=== PATIENT | female | born 2005 | race Caucasian/White ===

== ENCOUNTER 2023-06-01 07:05 | Emergency (ER) | payer OTHER, SELFPAY ==
[2023-06-01] VITALS (7 sets, daily range): BP systolic 130–135; BP diastolic 87–100; PULSE 98–115; RESP 20; TEMP 38.2; O2SAT 95–98; BMI 22.3
--- NOTE | 2023-06-01 07:30 | ED_ITS ---
HPI - General Adult General Chief complaint: Difficulty Swallowing <Ruddy Pedraza MD - Last Filed: 06/03/23 07:19> Stated complaint: COVID+, trouble breathing <Ruddy Pedraza MD - Last Filed: 06/03/23 07:19> Time Seen by Provider: 06/01/23 07:23 <Ruddy Pedraza MD - Last Filed: 06/03/23 07:19> History of Present Illness HPI narrative: Patient is a 17-year-old college student at [employer] who comes in today with 2 day history of pharyngitis general malaise nonproductive cough and fatigue. She was seen in urgent care yesterday and tested positive for both influenza and COVID-19. Her rapid strep was negative. Today her main complaint is severe pharyngitis. She does have temperature of 100.8?. She has having hard time swallowing and is feeling dehydrated. She has had no nausea no vomiting no abdominal pain. She was started on Tamiflu and Augmentin yesterday but was unable to pick it up at her pharmacy. Patient states she is otherwise healthy. <Ruddy Pedraza MD - Last Filed: 06/03/23 07:19> Related Data Home medications: Home Medications Medication Instructions Recorded Confirmed epinephrine 0.3 mg/0.3 mL IM 05/31/23 05/31/23 injection, auto-injector fluticasone propionate 50 1 spray intranasal QDAY 05/31/23 05/31/23 mcg/actuation nasal spray,suspension (Flonase Allergy Relief) Previous Rx's Medication Instructions Recorded amoxicillin 875 mg-potassium 1 tab PO BID 10 days #20 tabs 05/31/23 clavulanate 125 mg tablet oseltamivir 75 mg capsule 75 mg PO BID 5 days #10 caps 05/31/23 <Ruddy Pedraza MD - Last Filed: 06/03/23 07:19> Allergies/adverse reactions: Allergies Allergy/AdvReac Type Severity Reaction Status Date / Time peanut Allergy Anaphylaxis Verified 06/01/23 08:04 <Ruddy Pedraza MD - Last Filed: 06/03/23 07:19> Review of Systems Status of ROS: Reports: 10 or more systems reviewed and unremarkable except as noted in History and below <Ruddy Pedraza MD - Last Filed: 06/03/23 07:19> [facility] Social History: Social History Smoking Status: Never smoker Do you use any of these nicotine containing products: None How often do you have a drink containing alcohol: never AUDIT-C Alcohol total score: 0 Non-prescribed substance use: denies use <Ruddy Pedraza MD - Last Filed: 06/03/23 07:19> Exam Narrative: Exam Narrative: EXAM GENERAL: Patient appears uncomfortable EYES: No scleral icterus. ENT: Tympanic membranes are normal with significant tonsillar enlargement with exudate noted THYROID: no thyroid nodules or thyromegaly. LYMPH: No supraclavicular or cervical lymphadenopathy. SKIN: Visible skin seen during exam normal or with benign process only. EXT: No dependent lower extremity pedal edema. HEART: Regular rate and rhythm with no murmurs, rubs, or gallops. LUNGS: Clear to auscultation bilaterally with no crackles or wheezes. ABD: Soft, non tender, non distended. PSYCH: Good eye contact, speech is not pressured. <Ruddy Pedraza MD - Last Filed: 06/03/23 07:19> Const: Vital Signs, click to edit/add: Vital Signs - 24 hr 06/01/23 07:17 06/01/23 07:30 06/01/23 09:48 Temperature 100.8 F H Pulse Rate 112 H Pulse Rate [Pulse Oximeter] 98 115 H Respiratory Rate 20 Blood Pressure [Ri ght Upper Arm] 135/100 H 130/87 Pulse Oximetry 98 97 96 Oxygen Delivery Me thod Room Air Room Air 06/01/23 10:00 06/01/23 10:15 06/01/23 10:30 Temperature Pulse Rate 109 H 109 H 106 H Pulse Rate [Pulse Oximeter] Respiratory Rate Blood Pressure [Ri ght Upper Arm] Pulse Oximetry 96 97 95 Oxygen Delivery Me thod 06/01/23 10:45 Temperature Pulse Rate 104 H Pulse Rate [Pulse Oximeter] Respiratory Rate Blood Pressure [Ri ght Upper Arm] Pulse Oximetry 95 Oxygen Delivery Me thod <Ruddy Pedraza MD - Last Filed: 12/18/23 07:19> Vital Signs, click to edit/add: Vital Signs - 24 hr 06/01/23 07:17 06/01/23 07:30 06/01/23 09:48 Temperature 100.8 F H Pulse Rate 112 H Pulse Rate [Pulse Oximeter] 98 115 H Respiratory Rate 20 Blood Pressure [Ri ght Upper Arm] 135/100 H 130/87 Pulse Oximetry 98 97 96 Oxygen Delivery Me thod Room Air Room Air 06/01/23 10:00 06/01/23 10:15 06/01/23 10:30 Temperature Pulse Rate 109 H 109 H 106 H Pulse Rate [Pulse Oximeter] Respiratory Rate Blood Pressure [Ri ght Upper Arm] Pulse Oximetry 96 97 95 Oxygen Delivery Me thod 06/01/23 10:45 Temperature Pulse Rate 104 H Pulse Rate [Pulse Oximeter] Respiratory Rate Blood Pressure [Ri ght Upper Arm] Pulse Oximetry 95 Oxygen Delivery Me thod <Michael Rodriguez MD - Last Filed: 06/01/23 19:53> Course Course ED Course: Patient seen and examined. IV placed. Normal saline started. Toradol 30 mg given IV. Rapid strep repeated. CBC basic metabolic panel CT neck soft tissue ordered. <Ruddy Pedraza MD - Last Filed: 06/03/23 07:19> Reevaluation(s) Reevaluation #1: Patient signed over to Dr. Rodriguez at shift change-8:00 a.m.. 17-year-old generally healthy seen with student. Has been sick for 2 days. Seen yesterday with a 1 day history of sore throat, fever chills, cough. In urgent care tested negative for strep. Nasal swab was positive for both coronavirus and influenza. Urgent Care notes indicate that she had exudate of pharyngitis and tonsil asymmetry. Although strep was negative she was given prescription for Augmentin. Also prescription for Tamiflu to treat influenza. She has not been able to fill the prescriptions for Tamiflu or Augmentin. Return to the ER this morning with ongoing sore throat, difficulty taking fluids. Dr. Pedraza saw her. He ordered Toradol, IV fluids, labs, and neck CT to evaluate for possible peritonsillar or retropharyngeal abscess. Labs show: WBC 12.7, hemoglobin 14.6, platelet 206 Differential 44.9% lymphocytes, 44.7 monocyte Sodium 137, potassium 4.0, chloride 102, bicarb 23, anion gap 12, BUN 10, creatinine 0.9, glucose 105 <Michael Rodriguez MD - Last Filed: 06/01/23 19:53> Reevaluation #2: CT neck results back IMPRESSION: 1. [place] tonsillitis, without discrete rim enhancing fluid collection to suggest abscess. Mild infiltration of the parapharyngeal fat. 2. Presumed reactive cervical chain lymphadenopathy. 3. Mild paranasal sinus mucosal disease. <Michael Rodriguez MD - Last Filed: 06/01/23 19:53> Reevaluation #3: Recheck-I re-evaluated the patient. She is sitting up in her bed. She was requesting discharge. Had a long conversation with the patient about her CT findings, lab findings and plan of care. At that had another conversation with her mother and father by phone. They are currently in [place] and mother will be flying here this afternoon. MDM. Patient does have evidence for significant exudate of pharyngitis. No evidence for [employer] or RPA or other deep space neck infection on CT scan. Airway patent. She has pain with swallowing but is able to swallow liquids and soft solids here in the ER. Pain was improved with Toradol. She thinks she will be able to manage her pain with [id number] medications and we will avoid opiates due to their side effect profile at this time. Cause of the pharyngitis is unclear. This certainly could be a viral pharyngitis. She is positive for influenza and COVID. However the degree of inflammation exudate seems out of proportion for typical influenza or coronavirus sore throat. She is negative for strep. However she was prescribed Augmentin by the urgent care yesterday(but was not able to start it yesterday). I would agree that it is reasonable to start and finish that course of antibiotic. Will also add IV Decadron 10 mg IV here to try to help her pharyngitis. We discussed strategies for maintaining hydration and precautions for return to the ER. Patient as well as her parents verbalized her understanding and agreement. She is also positive for influenza a yesterday in the urgent care. She was prescribed Tamiflu. She has apparently had very bad GI side effects from Tamiflu in the past so she and her family feel like she will not take it this time. Overall since she is 17 and healthy with no underlying medical comorbidities, she is not at high risk for severe influenza illness and I think it is reasonable to hold off on Tamiflu. She is also positive for coronavirus. She would be low risk for severe illness given age and absence of comorbidities. At this point would not be a candidate for Paxlovid. Discussed the potential progression of COVID and precautions for return to the ER. They have plans for her to travel by plane to [place] on Saturday. I advised that they should contact their airline. With a positive coronavirus test, currently on day of 3 of symptoms, she would be be on 5 days of quarantine before Saturday but not beyond the full 10 days. <Michael Rodriguez MD - Last Filed: 06/01/23 19:53> Vital Signs Vital signs: Initial Vital Signs Temperature 100.8 F H 06/01/23 07:17 Temperature Source Temporal Artery Scan 06/01/23 07:17 Pulse Rate 98 06/01/23 07:17 Respiratory Rate 20 06/01/23 07:17 Blood Pressure 135/100 H 06/01/23 07:17 Blood Pressure Mean 111 H 06/01/23 07:17 Pulse Oximetry 98 06/01/23 07:17 Oxygen Delivery Method Room Air 06/01/23 07:17 Vital Signs Temperature 100.8 F H 06/01/23 07:17 Pulse Rate 98 06/01/23 07:17 Respiratory Rate 20 06/01/23 07:17 Blood Pressure 135/100 H 06/01/23 07:17 Pulse Oximetry 98 06/01/23 07:17 Oxygen Delivery Method Room Air 06/01/23 07:17 Temperature 100.8 F H 06/01/23 07:17 Pulse Rate 104 H 06/01/23 10:45 Respiratory Rate 20 06/01/23 07:17 Blood Pressure 130/87 06/01/23 07:30 Pulse Oximetry 95 06/01/23 10:45 Oxygen Delivery Method Room Air 06/01/23 07:30 <Ruddy Pedraza MD - Last Filed: 06/03/23 07:19> Initial Vital Signs Temperature 100.8 F H 06/01/23 07:17 Temperature Source Temporal Artery Scan 06/01/23 07:17 Pulse Rate 98 06/01/23 07:17 Respiratory Rate 20 06/01/23 07:17 Blood Pressure 135/100 H 06/01/23 07:17 Blood Pressure Mean 111 H 06/01/23 07:17 Pulse Oximetry 98 06/01/23 07:17 Oxygen Delivery Method Room Air 06/01/23 07:17 Vital Signs Temperature 100.8 F H 06/01/23 07:17 Pulse Rate 98 06/01/23 07:17 Respiratory Rate 20 06/01/23 07:17 Blood Pressure 135/100 H 06/01/23 07:17 Pulse Oximetry 98 06/01/23 07:17 Oxygen Delivery Method Room Air 06/01/23 07:17 Temperature 100.8 F H 06/01/23 07:17 Pulse Rate 104 H 06/01/23 10:45 Respiratory Rate 20 06/01/23 07:17 Blood Pressure 130/87 06/01/23 07:30 Pulse Oximetry 95 06/01/23 10:45 Oxygen Delivery Method Room Air 06/01/23 07:30 <Michael Rodriguez MD - Last Filed: 06/01/23 19:53> Medications Administered Medications: Discontinued Medications Generic Name Dose Route Start Last Admin Trade Name Freq PRN Reason Stop Dose Admin Dexamethasone 10 mg 06/01/23 11:59 06/01/23 12:05 Dexamethasone 4 Mg/Ml Vial IV 06/01/23 12:00 10 mg ONCE ONE Administration Sodium Chloride 1,000 mls @ 1,000 mls/hr 06/01/23 07:34 06/01/23 09:23 0.9 % Sodium Chloride 1000 Ml IV 06/01/23 08:33 Infused .Q1H MILLER Infusion Ketorolac Tromethamine 15 mg 06/01/23 07:33 06/01/23 07:44 Ketorolac 15 Mg/Ml Inj IVP 06/01/23 07:34 15 mg ONCE ONE Administration <Ruddy Pedraza MD - Last Filed: 06/03/23 07:19> Discontinued Medications Generic Name Dose Route Start Last Admin Trade Name Freq PRN Reason Stop Dose Admin Dexamethasone 10 mg 06/01/23 11:59 06/01/23 12:05 Dexamethasone 4 Mg/Ml Vial IV 06/01/23 12:00 10 mg ONCE ONE Administration Sodium Chloride 1,000 mls @ 1,000 mls/hr 06/01/23 07:34 06/01/23 09:23 0.9 % Sodium Chloride 1000 Ml IV 06/01/23 08:33 Infused .Q1H MILLER Infusion Ketorolac Tromethamine 15 mg 06/01/23 07:33 06/01/23 07:44 Ketorolac 15 Mg/Ml Inj IVP 06/01/23 07:34 15 mg ONCE ONE Administration <Michael Rodriguez MD - Last Filed: 06/01/23 19:53> Medical Decision Making Lab Data Labs: Lab Results 06/01/23 06/01/23 06/01/23 Range/Units 07:35 08:13 08:53 WBC 12.77 H (4.50-11.00) K/uL RBC 5.01 (4.00-5.20) m/uL Hgb 14.6 (12.0-16.0) gm/dL Hct 42.8 (33.0-51.0) % MCV 85 (80-100) fL MCH 29 (26-34) pg MCHC 34 (32-36) gm/dL RDW Coeff of Arlene 12.5 (11.5-15.5) % Plt Count 206 (140-440) K/uL Neut % (Auto) 44.7 (42.0-72.0) % Lymph % (Auto) 44.9 H (20-44) % [place] % (Auto) 10.0 (0.0-11.0) % Eos % (Auto) 0.1 (0.0-7.0) % Baso % (Auto) 0.2 (0.0-3.0) % Neut # (Auto) 5.70 (1.7-7.0) K/uL Lymph # (Auto) 5.70 H (0.90-2.90) K/uL [place] # (Auto) 1.30 H (0.00-0.90) K/UL Eos # (Auto) 0.00 (0.00-0.50) K/uL Baso # (Auto) 0.00 (0.00-0.30) K/uL Abs Immat Gran (auto) 0.00 (0.00-0.30) K/uL Imm/Tot Granulo (auto) 0.1 % Diff Slide Review Acceptable Review (Acceptable) Sodium 137 (135-149) mmol/L Potassium 4.0 (3.6-5.1) mmol/L Chloride 102 (96-114) mmol/L Carbon Dioxide 23 (20-32) mmol/L Anion Gap 12 (7-15) mEq/L BUN 10 (5-24) mg/dL Creatinine 0.9 (0.6-1.2) mg/dL Estimated Creat Clear 86.82 Estimated GFR 94 ml/min Glucose 105 (60-115) mg/dL Calcium 9.5 (8.7-10.8) mg/dL HCG, Qual Negative (Negative) Group A Strep DNA NOT DETECTED (Not Detectd) Lab Acknowledgement Test Added <Ruddy Pedraza MD - Last Filed: 06/03/23 07:19> Lab Results 06/01/23 06/01/23 06/01/23 Range/Units 07:35 08:13 08:53 WBC 12.77 H (4.50-11.00) K/uL RBC 5.01 (4.00-5.20) m/uL Hgb 14.6 (12.0-16.0) gm/dL Hct 42.8 (33.0-51.0) % MCV 85 (80-100) fL MCH 29 (26-34) pg MCHC 34 (32-36) gm/dL RDW Coeff of Arlene 12.5 (11.5-15.5) % Plt Count 206 (140-440) K/uL Neut % (Auto) 44.7 (42.0-72.0) % Lymph % (Auto) 44.9 H (20-44) % [place] % (Auto) 10.0 (0.0-11.0) % Eos % (Auto) 0.1 (0.0-7.0) % Baso % (Auto) 0.2 (0.0-3.0) % Neut # (Auto) 5.70 (1.7-7.0) K/uL Lymph # (Auto) 5.70 H (0.90-2.90) K/uL [place] # (Auto) 1.30 H (0.00-0.90) K/UL Eos # (Auto) 0.00 (0.00-0.50) K/uL Baso # (Auto) 0.00 (0.00-0.30) K/uL Abs Immat Gran (auto) 0.00 (0.00-0.30) K/uL Imm/Tot Granulo (auto) 0.1 % Diff Slide Review Acceptable Review (Acceptable) Sodium 137 (135-149) mmol/L Potassium 4.0 (3.6-5.1) mmol/L Chloride 102 (96-114) mmol/L Carbon Dioxide 23 (20-32) mmol/L Anion Gap 12 (7-15) mEq/L BUN 10 (5-24) mg/dL Creatinine 0.9 (0.6-1.2) mg/dL Estimated Creat Clear 86.82 Estimated GFR 94 ml/min Glucose 105 (60-115) mg/dL Calcium 9.5 (8.7-10.8) mg/dL HCG, Qual Negative (Negative) Group A Strep DNA NOT DETECTED (Not Detectd) Lab Acknowledgement Test Added <Michael Rodriguez MD - Last Filed: 06/01/23 19:53> Discharge Plan Discharge Clinical Impression: COVID-19, Influenza A, Pharyngitis <Ruddy Pedraza MD - Last Filed: 06/03/23 07:19> Patient Disposition: Home, Self-Care <Ruddy Pedraza MD - Last Filed: 06/03/23 07:19> Condition: Stable <Ruddy Pedraza MD - Last Filed: 06/03/23 07:19> Instructions: Pharyngitis (ED), Influenza (ED), COVID-19 (Coronavirus Disease 2019) (ED), COVID-19: Slow the Coronavirus Spread (ED) <Ruddy Pedraza MD - Last Filed: 06/03/23 07:19> Additional Instructions: As we discussed, stay home and try to quarantine for at least 3 more days and until after you have been afebrile for 24 hours to avoid spreading your illness. Use Tylenol or ibuprofen if needed for sore throat. Stick to soft foods and clear liquids such as ice cream and yogurt. Try to drink plenty of liquids to stay hydrated. If you have worsening pain with swallowing, cannot stay hydrated, weakness, or any concerns, please return to the ER to be rechecked. Use the amoxicillin/clavulanic acid, to treat in case you have a bacterial infection in your tonsils. However, It is possible that your tonsillitis is being caused by virus (possibly influenza or COVID, or some other virus). <Ruddy Pedraza MD - Last Filed: 06/03/23 07:19> Prescriptions: No Action epinephrine 0.3 mg/0.3 mL auto-injector IM fluticasone propionate [Flonase Allergy Relief] 50 mcg/actuation spray,suspension 1 spray intranasal QDAY Rx Instructions: administer into each nostril oseltamivir 75 mg capsule 75 mg PO BID 5 Days Qty: 10 0RF amoxicillin-pot clavulanate 875-125 mg tablet 1 tab PO BID 10 Days Qty: 20 0RF <Ruddy Pedraza MD - Last Filed: 06/03/23 07:19> Follow Up/Referrals: Provider,Not a Local [Primary Care Provider] - <Ruddy Pedraza MD - Last Filed: 06/03/23 07:19> Stand Alone Forms: MyHealth Info Instructions <Ruddy Pedraza MD - Last Filed: 06/03/23 07:19>
--- NOTE | 2023-06-01 07:33 | CRLHL7_ITS ---
For Patients: As a result of the Century Cures Act, medical imaging exams and procedure reports are released immediately into your electronic medical record. You may view this report before your referring provider. If you have questions, please contact your health care provider. INDICATION: Flu. Sore throat. TECHNIQUE: CT of the neck soft tissues performed with IV contrast. Contrast: 64 cc Isovue 370. COMPARISON: None available at this institution. FINDINGS: Enlargement of the bilateral palatine tonsils, with slight internal heterogeneity. No discrete rim enhancing fluid collection identified. There is slight infiltration with effacement of the parapharyngeal fat. The parotid and submandibular glands appear unremarkable. The thyroid gland is normal. Bilateral cervical chain lymphadenopathy. The visualized major vascular structures appear intact. The visualized intracranial components appear grossly intact. Visualized orbits and contents appear unremarkable. Mild paranasal sinus mucosal disease. Lung apices are clear. IMPRESSION: 1. [place] tonsillitis, without discrete rim enhancing fluid collection to suggest abscess. Mild infiltration of the parapharyngeal fat. 2. Presumed reactive cervical chain lymphadenopathy. 3. Mild paranasal sinus mucosal disease. Please note that all CT scans at this facility use dose modulation, iterative reconstruction, and/or weight-based dosing when appropriate to reduce radiation dose to as low as reasonably achievable. Dictated by Yousif Smith MD @ 06/01/2023 11:05:58 AM (Electronically Signed)
[2023-06-01] MEDS: 0.9 % SODIUM CHLORIDE 1000 ml 1,000 ML IV (07:44)
[2023-06-01] MEDS: KETOROLAC 15 MG/ML inj IVP (07:44)
[2023-06-01 07:46] LABS: Basophils Percent Auto 0.2 % (0.0-3.0); Eosinophils Percent Auto 0.1 % (0.0-7.0); Hematocrit 42.8 % (33.0-51.0); Hemoglobin* 14.6 gm/dL (12.0-16.0); Immature Granulocytes Pct Auto 0.1 %; Lymphocytes Percent Auto 44.9 % (20-44); Mean Corpuscular HGB Conc 34 gm/dL (32-36); Mean Corpuscular Hemoglobin 29 pg (26-34); Mean Corpuscular Volume 85 fL (80-100); Neutrophils Percent Auto 44.7 % (42.0-72.0); Platelet Count* 206 K/uL (140-440); RDW Coefficient of Variation % 12.5 % (11.5-15.5); Red Blood Count 5.01 m/uL (4.00-5.20); White Blood Count* 12.77 K/uL (4.50-11.00)
[2023-06-01 08:00] LABS: Chloride* 102 mmol/L (96-114); Sodium* 137 mmol/L (135-149)
[2023-06-01 08:03] LABS: Anion Gap 12 mEq/L (7-15); Blood Urea Nitrogen* 10 mg/dL (5-24); Calcium* 9.5 mg/dL (8.7-10.8); Carbon Dioxide* 23 mmol/L (20-32); Creatinine* 0.9 mg/dL (0.6-1.2); Est. Creatinine Clearance* 86.82; Estimated Glomerular Filt Rate 94 ml/min; Glucose* 105 mg/dL (60-115)
--- NOTE | 2023-06-01 08:08 | ED.GENADULT ---
HPI - General Adult General Chief complaint: Difficulty Swallowing Stated complaint: COVID+, trouble breathing Time Seen by Provider: 06/01/23 07:23 Related Data Home Medications Medication Instructions Recorded Confirmed epinephrine 0.3 mg/0.3 mL IM 05/31/23 05/31/23 injection, auto-injector fluticasone propionate 50 1 spray intranasal QDAY 05/31/23 05/31/23 mcg/actuation nasal spray,suspension (Flonase Allergy Relief) Previous Rx's Medication Instructions Recorded amoxicillin 875 mg-potassium 1 tab PO BID 10 days #20 tabs 05/31/23 clavulanate 125 mg tablet oseltamivir 75 mg capsule 75 mg PO BID 5 days #10 caps 05/31/23 Allergies Allergy/AdvReac Type Severity Reaction Status Date / Time peanut Allergy Anaphylaxis Verified 06/01/23 08:04 [facility] Social History Smoking Status: Never smoker Do you use any of these nicotine containing products: None How often do you have a drink containing alcohol: never AUDIT-C Alcohol total score: 0 Non-prescribed substance use: denies use Exam Const: Vital Signs, click to edit/add: Vital Signs - 24 hr 06/01/23 07:17 Temperature 100.8 F H Pulse Rate [Pulse Oximeter] 98 Respiratory Rate 20 Blood Pressure [Ri ght Upper Arm] 135/100 H Pulse Oximetry 98 Oxygen Delivery Me thod Room Air Course Vital Signs Vital signs: Initial Vital Signs Temperature 100.8 F H 06/01/23 07:17 Temperature Source Temporal Artery Scan 06/01/23 07:17 Pulse Rate 98 06/01/23 07:17 Respiratory Rate 20 06/01/23 07:17 Blood Pressure 135/100 H 06/01/23 07:17 Blood Pressure Mean 111 H 06/01/23 07:17 Pulse Oximetry 98 06/01/23 07:17 Oxygen Delivery Method Room Air 06/01/23 07:17 Vital Signs Temperature 100.8 F H 06/01/23 07:17 Pulse Rate 98 06/01/23 07:17 Respiratory Rate 20 06/01/23 07:17 Blood Pressure 135/100 H 06/01/23 07:17 Pulse Oximetry 98 06/01/23 07:17 Oxygen Delivery Method Room Air 06/01/23 07:17 Temperature 100.8 F H 06/01/23 07:17 Pulse Rate 98 06/01/23 07:17 Respiratory Rate 20 06/01/23 07:17 Blood Pressure 135/100 H 06/01/23 07:17 Pulse Oximetry 98 06/01/23 07:17 Oxygen Delivery Method Room Air 06/01/23 07:17 Medications Administered Medications: Generic Name Dose Route Start Last Admin Trade Name Freq PRN Reason Stop Dose Admin Sodium Chloride 1,000 mls @ 1,000 mls/hr 06/01/23 07:34 06/01/23 07:44 0.9 % Sodium Chloride 1000 Ml IV 06/01/23 08:33 1,000 mls/hr .Q1H MILLER Administration Ketorolac Tromethamine 15 mg 06/01/23 07:33 06/01/23 07:44 Ketorolac 15 Mg/Ml Inj IVP 06/01/23 07:34 15 mg ONCE ONE Administration Medical Decision Making Lab Data Labs: Lab Results 06/01/23 Range/Units 07:35 WBC 12.77 H (4.50-11.00) K/uL RBC 5.01 (4.00-5.20) m/uL Hgb 14.6 (12.0-16.0) gm/dL Hct 42.8 (33.0-51.0) % MCV 85 (80-100) fL MCH 29 (26-34) pg MCHC 34 (32-36) gm/dL RDW Coeff of Arlene 12.5 (11.5-15.5) % Plt Count 206 (140-440) K/uL Neut % (Auto) 44.7 (42.0-72.0) % Lymph % (Auto) 44.9 H (20-44) % [place] % (Auto) 10.0 (0.0-11.0) % Eos % (Auto) 0.1 (0.0-7.0) % Baso % (Auto) 0.2 (0.0-3.0) % Neut # (Auto) 5.70 (1.7-7.0) K/uL Lymph # (Auto) 5.70 H (0.90-2.90) K/uL [place] # (Auto) 1.30 H (0.00-0.90) K/UL Eos # (Auto) 0.00 (0.00-0.50) K/uL Baso # (Auto) 0.00 (0.00-0.30) K/uL Abs Immat Gran (auto) 0.00 (0.00-0.30) K/uL Imm/Tot Granulo (auto) 0.1 % Sodium 137 (135-149) mmol/L Potassium 4.0 (3.6-5.1) mmol/L Chloride 102 (96-114) mmol/L Carbon Dioxide 23 (20-32) mmol/L Anion Gap 12 (7-15) mEq/L BUN 10 (5-24) mg/dL Creatinine 0.9 (0.6-1.2) mg/dL Estimated Creat Clear 86.82 Estimated GFR 94 ml/min Glucose 105 (60-115) mg/dL Calcium 9.5 (8.7-10.8) mg/dL Discharge Plan Discharge Prescriptions: No Action epinephrine 0.3 mg/0.3 mL auto-injector IM fluticasone propionate [Flonase Allergy Relief] 50 mcg/actuation spray,suspension 1 spray intranasal QDAY Rx Instructions: administer into each nostril oseltamivir 75 mg capsule 75 mg PO BID 5 Days Qty: 10 0RF amoxicillin-pot clavulanate 875-125 mg tablet 1 tab PO BID 10 Days Qty: 20 0RF Follow Up/Referrals: Provider,Not a Local [Primary Care Provider] -
[2023-06-01 08:14] LABS: Slide Review Reflex Yes
[2023-06-01 08:15] LABS: Slide Review Acceptable Review (Acceptable)
[2023-06-01 08:24] LABS: HCG Qualitative Serum* Negative (Negative)
[2023-06-01 09:33] LABS: Strep A DNA Probe* NOT DETECTED (Not Detectd)
[2023-06-01] MEDS: dexAMETHasone 4 MG/ML VIAL 10 MG IV (12:05)
== END 2023-06-01 12:11 | disposition home or self-care (01) ==
PROVIDERS: Internal Medicine; Emergency Provider Emergency Medicine
DX: U07.1 COVID-19 (principal); J10.1 Influenza due to other identified influenza virus with other respiratory manifestations
CPT/HCPCS: 36415; 70491; 80048; 84703; 85025; 87651; 95992; 96361; 96374; 96375; 99283; 99284; 99285; J1100; J1885; J7030; Q9967